=== PATIENT | female | born 1960 | race Caucasian/White ===

== ENCOUNTER 2017-06-26 18:32 | Emergency (ER) | payer OTHER ==
[~2017-06-26] VITALS: Ht 160 cm; Wt 68.0 kg
[~2017-06-26 18:32] MED LIST: DIAZ5 PO; ESTR1TAB PO; ESTR42.5V VAGINAL; HYDR-3535 PO; MULTTAB27; PRIL20TA2
--- NOTE | 2017-06-26 18:36 | PD ---
HPI Chief Complaint: Neuro Symptoms/ Deficits Time Seen by Provider: 18:35 Travel History International Travel<30 days: No Contact w/Intl Traveler<30days: No Traveled to known affect area: No History of Present Illness HPI PATIENT HAD AN EPISODE YESTERDAY (OVER 15HRS AGO) WHEN SHE HAD TROUBLE RECALLING HER 'S BOSS, WHOM ACCORDING TO ARE WELL KNOWN TO BOTH OF THEM, SHE WAS ABLE TO RECOGNIZE BUT NOT HER SORROUNDINGS...THIS EPISODE OF MENTAL "CLOUDINESS" (UNABLE TO "GATHER" HER THOUGHTS) LASTED ABOUT 30MIN OR SO. PATIENT SEES DR TILLMAN HER ARTHRITIS DOCTOR, STATES THAT SHE HAS IMMUNOLOGICAL ARTHRITIS BUT IS UNSURE OF HER DIAGNOSIS. PCP IS DR ROJAS ([facility]) PMHX:HTN, DVT, OA, ?FIBROMYALGIA, CHRONIC PAIN PFSH Social History Tobacco Use: No Allergies-Medications (Allergen,Severity, Reaction): Coded Allergies: No Known Allergies (Verified Adverse Reaction, Unknown, 06/27/17) Reported Meds & Prescriptions Reported Meds & Active Scripts Active Estrace Vaginal (Estradiol) 0.01% Cream 1 Gm VAGINAL HS Reported Lisinopril 5 Mg Tab 5 Mg PO DAILY Multiple Vitamin 1 Tab 1 Tab PO DAILY Hydrocodone-Acetaminophen 10-325 mg Tab 1 Tab PO Q4H PRN Valium (Diazepam) 5 Mg Tab 5 Mg PO HS PRN Prilosec (Omeprazole Magnesium) 20 Mg Tab Estradiol 1 Mg Tab 1 Mg PO DAILY Review of Systems Except as stated in HPI: all other systems reviewed are Neg General / Constitutional: No: Fever Eyes: No: Visual changes HENT: No: Headaches Cardiovascular: No: Chest Pain or Discomfort Respiratory: No: Shortness of Breath Gastrointestinal: No: Abdominal Pain Genitourinary: No: Dysuria Musculoskeletal: Positive: Arthralgias Skin: No Rash Neurologic: Positive: Change in Mentation Psychiatric: No: Depression Endocrine: No: Polydipsia Hematologic/Lymphatic: No: Easy Bruising Physical Exam Narrative GENERAL: SKIN: Warm and dry. HEAD: Atraumatic. Normocephalic. EYES: Pupils equal and round. No scleral icterus. No injection or drainage. ENT: No nasal bleeding or discharge. Mucous membranes pink and moist. NECK: Trachea midline. No JVD. CARDIOVASCULAR: Regular rate and rhythm. RESPIRATORY: No accessory muscle use. Clear to auscultation. Breath sounds equal bilaterally. GASTROINTESTINAL: Abdomen soft, non-tender, nondistended. MUSCULOSKELETAL: Extremities without clubbing, cyanosis, or edema. No obvious deformities. NEUROLOGICAL: Awake and alert. No obvious cranial nerve deficits. Motor grossly within normal limits. Five out of 5 muscle strength in the arms and legs. Normal speech. PSYCHIATRIC: Appropriate mood and affect; insight and judgment normal. Data Data Last Documented VS Vital Signs Date Time Temp Pulse Resp B/P (MAP) Pulse Ox O2 Delivery O2 Flow Rate FiO2 06/26/17 19:43 18 100 Room Air 06/26/17 19:18 68 06/26/17 18:41 98.1 147/83 (104) Orders Orders Electrocardiogram (06/26/17 18:55) Complete Blood Count With Diff (06/26/17 18:55) Comprehensive Metabolic Panel (06/26/17 18:55) Troponin I (06/26/17 18:55) Prothrombin Time / Inr (Pt) (06/26/17 18:55) Act Partial Throm Time (Ptt) (06/26/17 18:55) Lipase (06/26/17 18:55) Urinalysis - C+S If Indicated (06/26/17 18:55) Thyroid Stimulating Hormone (06/26/17 18:55) Influenzae A/B Antigen (06/26/17 18:55) Chest, Single Ap (06/26/17 18:55) Ct Brain W/O Iv Contrast(Rout) (06/26/17 18:55) Iv Access Insert/Monitor (06/26/17 18:55) Ecg Monitoring (06/26/17 18:55) Oximetry (06/26/17 18:55) Drug Screen, Random Urine (06/26/17 18:55) Alcohol (Ethanol) (06/26/17 18:55) Salicylates (Aspirin) (06/26/17 18:55) Tylenol (Acetaminophen) (06/26/17 18:55) Admit Order (Ed Use Only) (06/26/17 ) Manager Demand / Telemetry [id number] (06/26/17 20:49) Activity Oob With Assistance (06/26/17 20:49) Notify Dr: Other (06/26/17 20:49) Labs Laboratory Tests Test 06/26/17 19:35 06/26/17 20:06 White Blood Count 6.2 TH/MM3 Red Blood Count 4.32 MIL/MM3 Hemoglobin 13.5 GM/DL Hematocrit 39.8 % Mean Corpuscular Volume 92.1 FL Mean Corpuscular Hemoglobin 31.3 PG Mean Corpuscular Hemoglobin Concent 34.0 % Red Cell Distribution Width 12.0 % Platelet Count 254 TH/MM3 Mean Platelet Volume 8.2 FL Neutrophils (%) (Auto) 50.1 % Lymphocytes (%) (Auto) 40.2 % Monocytes (%) (Auto) 8.0 % Eosinophils (%) (Auto) 0.9 % Basophils (%) (Auto) 0.8 % Neutrophils # (Auto) 3.1 TH/MM3 Lymphocytes # (Auto) 2.5 TH/MM3 Monocytes # (Auto) 0.5 TH/MM3 Eosinophils # (Auto) 0.1 TH/MM3 Basophils # (Auto) 0.0 TH/MM3 CBC Comment DIFF FINAL Differential Comment Prothrombin Time 10.0 SEC Prothromb Time International Ratio 1.0 RATIO Activated Partial Thromboplast Time 24.9 SEC Urine Color YELLOW Urine Turbidity CLEAR Urine pH 5.5 Urine Specific [place] 1.006 Urine Protein NEG mg/dL Urine Glucose (UA) NEG mg/dL Urine Ketones NEG mg/dL Urine Occult Blood NEG Urine Nitrite NEG Urine Bilirubin NEG Urine Leukocyte Esterase NEG Urine WBC 0-2 /hpf Urine Squamous Epithelial Cells 6-8 /hpf Microscopic Urinalysis Comment CULT NOT INDICATED Salicylates Level LESS THAN 1.7 MG/DL Urine Opiates Screen POS Urine Barbiturates Screen NEG Urine Amphetamines Screen NEG Urine Benzodiazepines Screen POS Urine Cocaine Screen NEG Urine Cannabinoids Screen NEG Blood Urea Nitrogen 8 MG/DL Creatinine 0.63 MG/DL Random Glucose 89 MG/DL Total Protein 6.5 GM/DL Albumin 3.0 GM/DL Calcium Level 8.1 MG/DL Alkaline Phosphatase 67 U/L Aspartate Amino Transf (AST/SGOT) 13 U/L Alanine Aminotransferase (ALT/SGPT) 17 U/L Total Bilirubin 0.2 MG/DL Sodium Level 138 MEQ/L Potassium Level 3.7 MEQ/L Chloride Level 105 MEQ/L Carbon Dioxide Level 24.9 MEQ/L Anion Gap 8 MEQ/L Estimat Glomerular Filtration Rate 97 ML/MIN Troponin I LESS THAN 0.02 NG/ML Lipase 206 U/L Thyroid Stimulating Hormone 3rd Gen 2.210 uIU/ML Acetaminophen Level LESS THAN 2.0 MCG/ML Ethyl Alcohol Level LESS THAN 3 MG/DL MDM Medical Decision Making Medical Screen Exam Complete: Yes Emergency Medical Condition: Yes Medical Record Reviewed: Yes Interpretation(s) NSR, 62, J POINT ELEVATION, NORMAL INTERVALS, NO STEMI PATTERN Differential Diagnosis TIA V ICH V ELECTROLYTE ABNL V PNA/UTI Narrative Course EXPLAINED RESULTS AND THE RECOMMENDATION TO STAY FOR STROKE WORKUP. THIS WAS LATER ON RECANTED AND REFUSED AFTER PATIENT DISCUSSED IT WITH HER THEY ARE DECIDING TO INSTEAD DO WORKUP AN OUTPATIENT...IT IS NOT MY RECOMMENDATION, AND IT WAS EXPLAINED WELL ABOUT THE CONSEQUENCES THAT COULD OCCUR. Diagnosis Primary Impression: POSSIBLE TIA Patient Instructions: Against Medical Advice (DC), General Instructions Additional Instructions: FOLLOWUP WITH DR ROJAS TOMORROW FOR FURTHER CARE SINCE YOU DID NOT WANT TO STAY AN INPATIENT FOR YOUR TIA/STROKE WORKUP. YOU ACCEPT THE CONSEQUENCES OF YOUR DECISION (WHICH INCLUDE, FULL PERMANENT PARALYSIS, ALTERED MENTAL STATUS , , COGNITIVE DISABILITY AND OTHER PERMANENT DEFICITS) Disposition: 07 AGAINST MEDICAL ADVICE Condition: Donnie Arenas MD Jun 26, 2017 18:36
[2017-06-26 18:41] VITALS: BP 147/83; PULSE 71; RESP 16; TEMP 98.1; O2SAT 99
[2017-06-26] MEDS ORDERED: HYDR-3583 PO (19:13)
[2017-06-26] MEDS ORDERED: MULTTAB67 PO (19:17)
--- NOTE | 2017-06-26 19:26 | RADRPT ---
EXAM DATE/TIME: 06/26/2017 19:16 [facility] COMPARISON: No previous studies available for comparison. INDICATIONS : Short of breath. MEDICAL HISTORY : None. SURGICAL HISTORY : None. ENCOUNTER: Initial ACUITY: 1 day PAIN SCORE: 0/10 LOCATION: Bilateral chest FINDINGS: Hyperinflation of the lungs consistent with COPD is noted. No focal infiltrate is noted. No pulmonary edema is noted. The heart is normal. CONCLUSION: Hyperinflation of lungs consistent with COPD. No acute focal pulmonary infiltrate or pulmonary vascul ar congestion. Oswaldo Pinon MD on June 26, 2017 at 19:24 Board Certified Radiologist. This report was verified electronically.
--- NOTE | 2017-06-26 19:37 | RADRPT ---
EXAM DATE/TIME: 06/26/2017 19:21 [facility] COMPARISON: No previous studies available for comparison. INDICATIONS : Confusion, dizziness yesterday with left sided head, neck, and shoulder pain. RADIATION DOSE: 59.84 CTDIvol (mGy) MEDICAL HISTORY : Hypertension. SURGICAL HISTORY : None. ENCOUNTER: Initial ACUITY: 1 day PAIN SCALE: 4/10 LOCATION: cranial TECHNIQUE: Multiple contiguous axial images were obtained of the head. Using automated exposure control and adj ustment of the mA and/or kV according to patient size, radiation dose was kept as low as reasonably a chievable to obtain optimal diagnostic quality images. DICOM format image data is available electro nically for review and comparison. FINDINGS: CEREBRUM: The ventricles are normal for age. No evidence of midline shift, mass lesion, hemorrhage or acute in farction. No extra-axial fluid collections are seen. POSTERIOR FOSSA: The cerebellum and brainstem are intact. The 4th ventricle is midline. The cerebellopontine angle i s unremarkable. EXTRACRANIAL: The visualized portion of the orbits is intact. SKULL: The calvaria is intact. No evidence of skull fracture. CONCLUSION: No acute disease. Oswaldo Pinon MD on June 26, 2017 at 19:35 Board Certified Radiologist. This report was verified electronically.
[2017-06-26 19:43] VITALS: RESP 18; O2SAT 100
[2017-06-26] MEDS ORDERED: LISI-519 PO (19:46)
[2017-06-26 19:47] LABS: AUTOMATED NEUTROPHIL # 3.1 TH/MM3 (1.8-7.7); BASOPHIL % 0.8 % (0.0-2.0); BLOOD, URINE NEG (NEG); EOSINOPHIL # 0.1 TH/MM3 (0-0.4); EOSINOPHIL % 0.9 % (0.0-4.0); GLUCOSE,URINE NEG (NEG); HEMATOCRIT 39.8 % (35.0-46.0); HEMO FLAGS DIFF FINAL; KETONE, URINE NEG (NEG); LYMPH % 40.2 % (9.0-44.0); LYMPHOCYTE # 2.5 TH/MM3 (1.0-4.8); MEAN CELL VOLUME 92.1 FL (80.0-100.0); MEAN CORPUSCULAR HEMOGLOBIN 31.3 PG (27.0-34.0); NEUT % 50.1 % (16.0-70.0); NITRITE,URINE NEG (NEG); PH, URINE 5.5 (5.0-8.5); PLATELET COUNT 254 TH/MM3 (150-450); RED BLOOD COUNT 4.32 MIL/MM3 (4.00-5.30); WHITE BLOOD COUNT 6.2 TH/MM3 (4.0-11.0)
[2017-06-26 19:57] LABS: URINE COLOR YELLOW (YELLW/STRAW)
[2017-06-26 19:58] LABS: COMMENT (UR) CULT NOT INDICATED; CULTURE IF INDICATED CULT NOT INDICATED; WBC, URINE 0-2 /hpf (0-5)
[2017-06-26 20:23] LABS: APTT (PATIENT) 24.9 SEC (24.3-30.1)
[2017-06-26 20:24] LABS: CHLORIDE 105 MEQ/L (98-107); POTASSIUM 3.7 MEQ/L (3.5-5.1); SODIUM (NA) 138 MEQ/L (136-145)
[2017-06-26 20:29] LABS: ANION GAP 8 MEQ/L (5-15); BICARBONATE 24.9 MEQ/L (21.0-32.0); BLOOD UREA NITROGEN 8 MG/DL (7-18)
[2017-06-26 20:31] LABS: ALT (GPT) 17 U/L (10-53); AST (GOT) 13 U/L (15-37); GLOMERULAR FILTRATION RATE 97 ML/MIN (>89)
[2017-06-26 20:33] LABS: TOTAL BILIRUBIN ADULT 0.2 MG/DL (0.2-1.0)
[2017-06-26 20:34] LABS: ALCOHOL LESS THAN 3 MG/DL (0-5); ALKALINE PHOSPHATASE 67 U/L (45-117)
[2017-06-26 21:33] VITALS: BP 140/70; PULSE 67; RESP 16; O2SAT 98
[2017-06-26 22:02] VITALS: BP 152/76
[2017-06-26 22:08] LABS: ACETAMINOPHEN LESS THAN 2.0 MCG/ML (10.0-30.0)
--- NOTE | 2017-06-27 15:52 | EKG ---
Date Performed: 06/26/2017 Time Performed: 19:05:09 PTAGE: 56 years EKG: Sinus rhythm NORMAL ECG NO PREVIOUS TRACING DOCTOR: Kris Real Interpretating Date/Time 06/27/2017 15:50:40
== END 2017-06-26 22:06 | disposition left against medical advice (07) ==
LOC: PHED 18:32 → PHEDA 20:50 → UNDOADMOB 20:50 → PHEDA 20:51 → UNDODISOB 22:06 → PHED 22:06
DX: Z53.21 Procedure and treatment not carried out due to patient leaving prior to being seen by health care provider (principal); R41.0 Disorientation, unspecified; M79.7 Fibromyalgia; I10 Essential (primary) hypertension; G89.29 Other chronic pain; I82.409 Acute embolism and thrombosis of unspecified deep veins of unspecified lower extremity; Z79.899 Other long term (current) drug therapy
CPT/HCPCS: 70450; 71010; 80053; 80307; 81001; 83690; 84443; 84484; 85025; 85610; 85730; 87804; 93005; G0378

== ENCOUNTER 2017-06-27 10:44 | Emergency (ER) | payer OTHER ==
[~2017-06-27] VITALS: Ht 160 cm; Wt 71.0 kg
[~2017-06-27 10:44] MED LIST changes: -HYDR-3535 PO; +HYDR-3583 PO; +LISI-519 PO; -MULTTAB27; +MULTTAB67 PO
[2017-06-27 10:51] VITALS: BP 150/67; PULSE 65; RESP 16; TEMP 97.9; O2SAT 100
--- NOTE | 2017-06-27 11:21 | PD ---
HPI Chief Complaint: chest pain Time Seen by Provider: 10:59 Travel History International Travel<30 days: No Contact w/Intl Traveler<30days: No Traveled to known affect area: No History of Present Illness HPI The patient was seen and examined in the presence of the nurse. This patient was seen in the ER yesterday for a 30 minute spell of confusion. She had extensive workup that was normal. She comes back today because she woke up this morning with left-sided chest pain. She has history of fibromyalgia. She did not have any muscle weakness or sensory loss or speech slurring. She has not had any repeat confusion since that 1 spell. Symptoms severity is moderate. No alleviating factors. No exacerbating factors PFSH Past Medical History Hx Anticoagulant Therapy: No Arthritis: Yes Asthma: Yes Autoimmune Disease: Yes Cardiovascular Problems: Yes (htn on meds) Cerebrovascular Accident: No Diminished Hearing: No Hypertension: Yes Respiratory: Yes (asthma) ?: Not Past Surgical History Hysterectomy: Yes Other Surgery: Yes (Hernia repair) Social History Alcohol Use: No Tobacco Use: No Substance Use: No Allergies-Medications (Allergen,Severity, Reaction): Coded Allergies: No Known Allergies (Verified Adverse Reaction, Unknown, 06/27/17) Reported Meds & Prescriptions Reported Meds & Active Scripts Active Estrace Vaginal (Estradiol) 0.01% Cream 1 Gm VAGINAL HS Reported Lisinopril 5 Mg Tab 5 Mg PO DAILY Multiple Vitamin 1 Tab 1 Tab PO DAILY Hydrocodone-Acetaminophen 10-325 mg Tab 1 Tab PO Q4H PRN Valium (Diazepam) 5 Mg Tab 5 Mg PO HS PRN Prilosec (Omeprazole Magnesium) 20 Mg Tab Estradiol 1 Mg Tab 1 Mg PO DAILY Review of Systems General / Constitutional: No: Fever Eyes: No: Visual changes HENT: No: Headaches Cardiovascular: Positive: Chest Pain or Discomfort Respiratory: No: Shortness of Breath Gastrointestinal: No: Abdominal Pain Genitourinary: No: Dysuria Musculoskeletal: Positive: Pain Skin: No Rash Neurologic: No: Weakness Psychiatric: No: Depression Endocrine: No: Polydipsia Hematologic/Lymphatic: No: Easy Bruising Physical Exam Narrative GENERAL: Well-nourished, well-developed patient in no apparent distress. SKIN: Focused skin assessment reveals no rash and nodules. Skin is Warm and dry. HEAD: Atraumatic. Normocephalic. EYES: Pupils equal and round. No scleral icterus. No injection or drainage. ENT: No nasal bleeding or discharge. Mucous membranes pink and moist. NECK: Trachea midline. No JVD. CARDIOVASCULAR: Regular rate and rhythm. No murmur appreciated. RESPIRATORY: No accessory muscle use. Clear to auscultation. Breath sounds equal bilaterally. GASTROINTESTINAL: Abdomen soft, non-tender, nondistended. Hepatic and splenic margins not palpable. MUSCULOSKELETAL: No obvious deformities. No clubbing. No cyanosis. No edema. Has clear-cut readily reproducible left upper chest wall tenderness in the pectoral region. NEUROLOGICAL: Awake and alert. No obvious cranial nerve deficits. Motor grossly within normal limits. Normal speech. PSYCHIATRIC: Appropriate mood and affect; insight and judgment normal. Data Data Last Documented VS Vital Signs Date Time Temp Pulse Resp B/P (MAP) Pulse Ox O2 Delivery O2 Flow Rate FiO2 06/27/17 10:51 97.9 65 16 150/67 (94) 100 MDM Medical Decision Making Medical Screen Exam Complete: Yes Emergency Medical Condition: Yes Medical Record Reviewed: Yes Differential Diagnosis Differential diagnosis includes [place], angina, pericarditis, pleurisy, GERD, anxiety. Narrative Course I have reviewed the patient's electronic medical record. Reviewed her extensive workup from yesterday Patient is neurologically intact. I don't see any evidence of acute neurologic problem. Based on her report of the spell of confusion does not sound like an acute ischemic stroke. This was a one-time global spell of confusion. I don't see emergent need for hospitalization 2 days later when she is asymptomatic. She should follow-up with her primary care physician Dr. Dominguez and discuss this at length and determine whether further neurologic evaluation/workup is indicated. Regarding her chest pain, this is clearly musculoskeletal and will not require further evaluation. We discussed signs and symptoms of stroke including muscle weakness and sensory loss and speech slurring etc. If the patient develops any of these or any significant worsening her will bring her back promptly. She should take daily aspirin until primary physician evaluates her Diagnosis Primary Impression: Musculoskeletal chest pain Additional Instructions: Follow-up with primary care physician Take daily aspirin until you see your physician Med/Other Pt SpecificInfo: Other Disposition: 01 DISCHARGE HOME Condition: Stable Tej Mckay MD Jun 27, 2017 11:21
== END 2017-06-27 11:52 | disposition home or self-care (01) ==
LOC: PHED 10:44
DX: R07.89 Other chest pain (principal); I10 Essential (primary) hypertension; M79.7 Fibromyalgia
CPT/HCPCS: 99282

== ENCOUNTER → 2017-08-14 | Day surgery (SDC) | payer OTHER ==
[~2017-08-14] MED LIST changes: +BUPIVACAINE HCL PF 0.75% 30 ML VIAL; -DIAZ5 PO; -ESTR1TAB PO; -ESTR42.5V VAGINAL; -HYDR-3583 PO; +LIDOCAINE 1.5%/EPINEPHrine 1:200,000 PF SOLN 30 ML AMP; -LISI-519 PO; +MIDAZOLAM HCL 5 MG/ML VIAL (1 ML); -MULTTAB67 PO; +ONDANSETRON HCL 4 MG/2 ML VIAL IV PUSH; -PRIL20TA2; +PROPOFOL 500 MG/50 ML BTL IV; +ceFAZolin 2 GM PREMIX 50 ML; +oxyCODONE/ACETAMINOPHEN 5 MG/325 MG TAB
== END | disposition home or self-care (01) ==
LOC: ESDC 12:18
DX: M75.102 Unspecified rotator cuff tear or rupture of left shoulder, not specified as traumatic (principal); S43.492A Other sprain of left shoulder joint, initial encounter; M75.42 Impingement syndrome of left shoulder
CPT/HCPCS: 01630; 76942